=== PATIENT | male | born 1945 | race Caucasian/White ===

== ENCOUNTER 2018-11-11 11:26 | Inpatient (IN) | payer OTHER ==
--- NOTE | 2018-11-11 12:13 | PDOC ---
History of Present Illness - General Chief Complaint: Revisit, Lab Variance Stated Complaint: ABNORMAL BLOOD Time Seen by Provider: 11/11/18 11:53 - History of Present Illness Initial Comments: 11/11/18 13:01 HPI: 73 y/o M hx of gout and prostate cancer (dxd 09/2017 s/p treatment with Lupron shots last taken in 05/2018) presenting from home for having Hb 6.2 from recent office visit blood work. Patient reports 6 months of lethargy and inability to be active since his last Lupron shot in May. He attributed his symptoms to his cancer, however, was convinced by his to see his PCP 2 days ago for blood work; he was called yesterday with results and told to present to the ED. Patient is normally very active and spends time walking however the lethargy has prevented that. He also reports increased SOB when walking up the stairs at home as well as LH when getting up from bed. Patient denies fever, night sweats, ARCHER, vision change, chest pain, palpitations , abdominal pain, nausea, vomiting, diarrhea, constipation, dysuria, hematuria, BPR, lightheadedness, weakness, sensory changes. Of note, patient reports a single episode of large bloody bowel movement 1.5 years ago where the toilet bowl filled with blood after starting ASA meds. He stopped taking ASA and never had an additional episode. He reports having a hemoccult with his PCP that was negative. Denies ever having colonoscopy. Denies FH of colorectal cancer. He also does note that his pants no longer fit comfortably and he has had to cut the elastic bands of his underwear due to increased pressure on his abdomen; denies any abdominal pain when not wearing clothes PMHx: as noted above ROS: as noted SHx: Denies tobacco use since 40 years ago; no alcohol use since 11 years ago; no rec drugs Allergies: NKDA PCP: Dr Laz Michel Oncologist: Dr Nicolle Ho : Angela Contreras [phone] ROS: GENERAL/CONSTITUTIONAL: +lethargy HEAD, EYES, EARS, NOSE AND THROAT: No change in vision. No ear pain or discharge. No sore throat. CARDIOVASCULAR: No chest pain or shortness of breath RESPIRATORY: No cough, wheezing, or hemoptysis. GASTROINTESTINAL: No nausea, vomiting, diarrhea or constipation. GENITOURINARY: No dysuria, frequency, or change in urination. MUSCULOSKELETAL: No joint or muscle swelling or pain. No neck or back pain. SKIN: No rash NEUROLOGIC: No headache, vertigo, loss of consciousness, or change in strength/ sensation. ENDOCRINE: No increased thirst. No abnormal weight change HEMATOLOGIC/LYMPHATIC: No anemia, easy bleeding, or history of blood clots. ALLERGIC/IMMUNOLOGIC: No hives or skin allergy. PE: GENERAL: Awake, alert, and fully oriented, no acute distress, appears pale HEAD: No signs of trauma, normocephalic, atraumatic EYES: EOMI, sclera anicteric, conjunctival pallor ENT: Auricles normal inspection, hearing grossly normal, nares patent, oropharynx clear without exudates. Moist mucosa NECK: Normal ROM, no lymphadenopathy LUNGS: No increased work of breathing, symmetrical chest rise, clear to auscultation bilaterally, no wheezes, crackles or rhonchi HEART: Regular rate and rhythm, normal S1 and S2, no murmurs, peripheral pulses 2+ and equal bilaterally. ABDOMEN: Soft, nontender, nondistended, normoactive bowel sounds. No guarding, no rebound. No masses EXTREMITIES: Normal inspection, Normal range of motion, no edema. No clubbing or cyanosis. NEUROLOGICAL: Cranial nerves II through XII grossly intact. Normal speech, normal gait, no focal sensorimotor deficits SKIN: Warm, Dry, pale 11/11/18 15:27 Past History - Past Medical History Allergies/Adverse Reactions: Allergies Allergy/AdvReac Type Severity Reaction Status Date / Time No Known Allergies Allergy Verified 11/11/18 11:37 Home Medications: Ambulatory Orders NK [No Known Home Medication] 11/11/18 Cancer: Yes (prostate) COPD: No - Suicide/Smoking/Psychosocial Hx Smoking History: Never smoked *Physical Exam - Vital Signs Last Vital Signs Temp Pulse Resp BP Pulse Ox 98.1 F 79 18 157/61 100 11/11/18 11:35 11/11/18 11:35 11/11/18 11:35 11/11/18 11:35 11/11/18 11:57 ED Treatment Course - LABORATORY CBC & Chemistry Diagram: 11/11/18 13:00 11/11/18 13:00 Medical Decision Making - Medical Decision Making 11/11/18 13:08 73 y/o M hx of gout and prostate cancer (dxd 09/2017 s/p treatment with Lupron shots last taken in 05/2018) presenting from home for having Hb 6.2 from recent office visit blood work associated with lethargy and dyspnea on exertion over the past 6 months. Vitals wnl. PE remarkable for conjunctival pallor -cbc, cmp, Fe studies, T&S, hemoccult 11/11/18 15:23 Hb 6.5 Fe studies likely consistent with Fe deficiency anemia: Fe 9; TIBC 490; Fe 1%; Un IBC 481 hemoccult negative MBMD to [facility] 11/11/18 17:14 1unit prbc Will admit to [facility] *DC/Admit/Observation/Transfer Diagnosis at time of Disposition: Lethargy, Dyspnea on exertion Anemia Qualifiers: Anemia type: unspecified type Qualified Code(s): D64.9 - Anemia, unspecified - Discharge Dispostion Condition at time of disposition: Stable Decision to Admit order: Yes - Referrals Referrals: Laz Michel [Primary Care Provider] - - Patient Instructions - Post Discharge Activity
--- NOTE | 2018-11-11 12:26 | PDOC ---
Attending Attestation - Resident Resident Name: Soco Marques - ED Attending Attestation I have performed the following: I have examined & evaluated the patient, The case was reviewed & discussed with the resident, I agree w/resident's findings & plan, Exceptions are as noted - HPI HPI: 11/11/18 12:15 73y F hx of prostate ca formerly on lupron presents fro anemia - pt had outpatient lab work at dr Price office and was noted to have hbg of 6.2 and was told to come to the ED for a transfusion. pt notes he has had palpitations, and lightheadedness when he exerts hmself. denies any cp, sob, abd pain, rectal bleeding, melena, bpr, fever/chills. pt with hx of GIB in the past, but never followed up. GENERAL: The patient is awake, alert, and fully oriented, Nontoxic - in no acute distress. HEAD: Normocephalic, atraumatic. EYES: extraocular movements intact, sclera anicteric, pale conjunctiva ENT: Normal voice, Moist mucous membranes. NECK: Normal range of motion, supple LUNGS: Breath sounds equal, clear to auscultation bilaterally. No wheezes, no rhonchi, no rales. HEART: Regular rate and rhythm, normal S1 and S2 without murmur, rub or gallop. ABDOMEN: Soft, nontender, No guarding, no rebound. No CVA tenderness EXTREMITIES: Normal range of motion, trace edema. NEUROLOGICAL: No facial assymetry, Normal speech, PSYCH: Normal mood, normal affect. SKIN: Warm, Dry, normal turgor, - Physicial Exam PE: 11/11/18 16:21 see above - Medical Decision Making 11/11/18 16:21 pts albs reviewed noted anemic stool guaaic negative, but mimial stool in rectal vault will transuse 1u prbc and admit for further evaluation of anemia
[2018-11-11 13:31] LABS: MCH 15.5 pg (25.7-33.7); MCHC 28.1 g/dl (32.0-35.9); MEAN CELL VOLUME 55.1 fl (80-96); MEAN PLT VOLUME 8.8 fl (7.5-11.1); RBC 4.18 M/mm3 (4.00-5.60); RDW 20.7 % (11.9-15.9)
[2018-11-11 13:39] LABS: PLATELET COUNT 325 K/MM3 (134-434)
[2018-11-11 13:40] LABS: HEMOGLOBIN 6.5 GM/dL (11.7-16.9)
[2018-11-11 13:51] LABS: ALBUMIN 3.1 g/dl (3.4-5.0); BILIRUBIN,TOTAL 0.2 mg/dL (0.2-1); BLOOD UREA NITROGEN 7.1 mg/dL (7-18); CALCIUM 8.7 mg/dL (8.5-10.1); CREATININE 0.9 mg/dL (0.55-1.3); POTASSIUM 4.2 mmol/L (3.5-5.1); TOT PROT 6.7 g/dl (6.4-8.2)
[2018-11-11 13:57] LABS: IRON SERUM 9 ug/dL (50-175); TOTAL IRON BINDING CAPACITY 490 ug/dL (250-450)
[2018-11-11 14:13] LABS: INR 1.04 (0.83-1.09); PROTHROMBIN TIME (PATIENT) 12.3 SEC (9.7-13.0)
[2018-11-11 14:27] LABS: ANISOCYTOSIS 2+; MACROCYTOSIS 0; OVALOCYTE 1+; PLATELET ESTIMATE NORMAL; TEAR DROP CELLS 1+
--- NOTE | 2018-11-11 17:45 | HP ---
CHIEF COMPLAINT: Dyspnea on exertion and lethargy PCP: Dr. Michel HISTORY OF PRESENT ILLNESS: Pt. is a 73 y.o. M w/ PMHx. of Gout and Prostate CA ( Ddx. in 09/21, last Lupron injection 01/22) presents with worsening lethargy and dyspnea since May. Pt. states that he was convinced by his to go to his PCP (3 days ago) about his worsening symptoms that he felt was because of the Lupron. Pt. states that after climbing one flight of stairs he is diaphoretic, dizzy and has palpitations. Pt.states that he had a big blood bowel movement 1.5 years ago but denies any other episodes of occult blood loss including hematemesis, hematuria, melena, bleeding through the gums or bruises. Pt states that he is unable to eat red meat (lack of molars) and has decreased appetite over the last few months. Pt. states that he has been having worsening deep back pain( R>L) that is exacerbated by lying on the left side and by movement. Pt. endorses weight loss (205 lbs. -->198 lbs., unclear over how long of a period) despite increasing abdominal size that has cause such discomfort that none of his clothes fit and that he has to cut the elastics on his underwear. Pt. endorses worsening polyuria. Pt. endorses dizziness upon sitting up but denies chest pain, dyspnea at rest, constipation, paresthesias, nausea or vomiting. Of note Pt. states that on initial workup for his Prostate CA, he was told that he had enlarged lymph nodes in his pelvis and his back and that he had likely had his prostate CA for a long time by his oncologist. Pt. states that ever since he stopped taking the Lupron shots his PSA levels have increased. Pt. is unclear when his last CBC was before the one 3 days ago. ER course was notable for: (1) CBC, CMP, Iron studies (2) 1 unit pRBCs (3) Recent Travel: No PAST MEDICAL HISTORY: Gout Prostate CA PAST SURGICAL HISTORY: B/L THR Social History: SmokinPPD (19-30 sporadically), Quit 40 years ago Alcohol: Heavy Drinker (5+ drinks per day of beer and liquor), Quit 11 years ago Drugs: Denies Family History: Denies Allergies No Known Allergies Allergy (Verified 11/11/18 11:37) HOME MEDICATIONS: Home Medications Medication Instructions Recorded NK [No Known Home Medication] 11/11/18 REVIEW OF SYSTEMS As per [facility] PHYSICAL EXAMINATION Vital Signs - 24 hr 11/11/18 11/11/18 11/11/18 11:35 11:57 16:00 Temperature 98.1 F 98.3 F Pulse Rate 79 Pulse Rate [ 79 Right Radial] Respiratory 18 18 Rate Blood Pressure 157/61 Blood Pressure 135/71 [Right Arm] O2 Sat by Pulse 100 100 100 Oximetry (%) GENERAL: Awake, alert, and fully oriented, in no acute distress. HEAD: Normal with no signs of trauma. EYES: Pupils equal, round and reactive to light, extraocular movements intact, sclera anicteric, conjunctiva clear. EARS, NOSE, THROAT: Ears normal, nares patent, oropharynx clear without exudates. Moist mucous membranes. NECK: Normal range of motion, supple without lymphadenopathy, JVD, or masses. LUNGS: Breath sounds equal, clear to auscultation bilaterally. No wheezes, and no crackles. HEART: Regular rate and rhythm, normal S1 and S2 without murmur ABDOMEN: Soft, nontender, not distended, normoactive bowel sounds, no guarding, no rebound, no masses. MUSCULOSKELETAL: Normal range of motion at all joints. No bony deformities or tenderness. No CVA tenderness. UPPER EXTREMITIES: 2+ pulses, warm, well-perfused. No cyanosis. No clubbing. No peripheral edema. LOWER EXTREMITIES: 2+ dorsal pedal pulses, warm, well-perfused. No calf tenderness. No peripheral edema. NEUROLOGICAL: Cranial nerves II-XII intact. Normal speech. Normal gait. PSYCHIATRIC: Cooperative. Good eye contact. Appropriate mood and affect. SKIN: Warm, dry, normal turgor, hemangiomas on abdomen, prolonged capillary refill. Laboratory Results - last 24 hr 11/11/18 11/11/18 11/11/18 13:00 13:00 13:00 WBC 6.0 RBC 4.18 Hgb 6.5 L* Hct 23.0 L MCV 55.1 L MCH 15.5 L MCHC 28.1 L RDW 20.7 H Plt Count 325 MPV 8.8 Neutrophils % No Result Required. Neutrophils % (Manual) 64.6 Band Neutrophils % 0.0 Lymphocytes % No Result Required. Lymphocytes % (Manual) 27.3 Monocytes % (Manual) 5 Eosinophils % (Manual) 2.0 Basophils % (Manual) 1.0 Myelocytes % (Man) 0 Promyelocytes % (Man) 0 Blast Cells % (Manual) 0 Nucleated RBC % 0 Metamyelocytes 0 Hypochromia 3+ Platelet Estimate Normal Polychromasia 1+ Poikilocytosis 1+ Anisocytosis 2+ Microcytosis 3+ Macrocytosis 0 Tear Drop Cells 1+ Ovalocytes 1+ PT with INR INR Sodium 139 Potassium 4.2 Chloride 107 Carbon Dioxide 25 Anion Gap 7 L BUN 7.1 Creatinine 0.9 Est GFR (CKD-EPI)AfAm 97.86 Est GFR (CKD-EPI)NonAf 84.43 Random Glucose 100 Calcium 8.7 Iron 9 L TIBC 490 H Iron Saturation 1 L Unsaturated IBC 481 H Total Bilirubin 0.2 AST 21 ALT 23 Alkaline Phosphatase 60 Total Protein 6.7 Albumin 3.1 L Vitamin B12 602 Serum Folate 24 H Stool Occult Blood Blood Type Antibody Screen Crossmatch 11/11/18 11/11/18 11/11/18 13:00 13:30 13:48 WBC RBC Hgb Hct MCV MCH MCHC RDW Plt Count MPV Neutrophils % Neutrophils % (Manual) Band Neutrophils % Lymphocytes % Lymphocytes % (Manual) Monocytes % (Manual) Eosinophils % (Manual) Basophils % (Manual) Myelocytes % (Man) Promyelocytes % (Man) Blast Cells % (Manual) Nucleated RBC % Metamyelocytes Hypochromia Platelet Estimate Polychromasia Poikilocytosis Anisocytosis Microcytosis Macrocytosis Tear Drop Cells Ovalocytes PT with INR 12.30 INR 1.04 Sodium Potassium Chloride Carbon Dioxide Anion Gap BUN Creatinine Est GFR (CKD-EPI)AfAm Est GFR (CKD-EPI)NonAf Random Glucose Calcium Iron TIBC Iron Saturation Unsaturated IBC Total Bilirubin AST ALT Alkaline Phosphatase Total Protein Albumin Vitamin B12 Serum Folate Stool Occult Blood Negative Blood Type O POSITIVE Antibody Screen Negative Crossmatch 11/11/18 13:48 WBC RBC Hgb Hct MCV MCH MCHC RDW Plt Count MPV Neutrophils % Neutrophils % (Manual) Band Neutrophils % Lymphocytes % Lymphocytes % (Manual) Monocytes % (Manual) Eosinophils % (Manual) Basophils % (Manual) Myelocytes % (Man) Promyelocytes % (Man) Blast Cells % (Manual) Nucleated RBC % Metamyelocytes Hypochromia Platelet Estimate Polychromasia Poikilocytosis Anisocytosis Microcytosis Macrocytosis Tear Drop Cells Ovalocytes PT with INR INR Sodium Potassium Chloride Carbon Dioxide Anion Gap BUN Creatinine Est GFR (CKD-EPI)AfAm Est GFR (CKD-EPI)NonAf Random Glucose Calcium Iron TIBC Iron Saturation Unsaturated IBC Total Bilirubin AST ALT Alkaline Phosphatase Total Protein Albumin Vitamin B12 Serum Folate Stool Occult Blood Blood Type O POSITIVE Antibody Screen Negative Crossmatch See Detail ASSESSMENT/PLAN: Pt. is a 73 y.o. M w/ PMHx. of Gout and Prostate CA( Ddx. in 09/21, last Lupron injection 01/22) presents with worsening lethargy and dyspnea since May. #Microcytic Iron Deficiency Anemia HgB: 6.5 RDW: 20.7 (High) MCV: 55 (Low) Iron: 9 (Low) TIBC: 490 (High) B12: 600 (Normal) Folate: 24 (High) f/u Ferritin and Reticulocyte count in AM 1 unit pRBCs currently transfusing will f/u CBC after transfusion would benefit from IV on treatment given low TIBC and Iron levels GI consult (Dr. Alvarado) appreiciated for colonoscopy FOBT Negative, f/u Rpt. in AM #FEN encourage PO intake, low threshold for gentle hydration monitor electrolytes and replete as needed Regular Diet #DVT Ppx. Hep SQ BID ATTENDING PHYSICIAN STATEMENT I saw and evaluated the patient. I reviewed the resident's note and discussed the case with the resident. I agree with the resident's findings and plan as documented. SUBJECTIVE: OBJECTIVE: ASSESSMENT AND PLAN:
--- NOTE | 2018-11-11 19:49 | PN ---
Teaching Attending Note Name of Resident: Carlos Domínguez ATTENDING PHYSICIAN STATEMENT I saw and evaluated the patient. I reviewed the resident's note and discussed the case with the resident. I agree with the resident's findings and plan as documented. SUBJECTIVE: CC: referred by [facility] for anemia HPI : 73 y/o man with h/o prostate cancer diagnosed in 2018, and gout who presented after referral by PCP for anemia. he was been feeling weak and tired for months and he attributed that to Lupron therapy. he took 2 doses and he skipped sixto last dose he was supposed to receive in May. he has not seen his oncologist jyoti while. he denies any hematochezia, melena, hematemesis, use of NSAIds or alcohol. he never had colonoscopy or EGD. no GI doctor. was never told he had anemia. does not remember when his blood work was. he was told his PSA is increasing. he reports havign saha CT scan and bone scan . he was told cancer had spread to his lymph nodes in abd reports chronic back pain in R flank. no fever or chills, no urinary incontinence. has frequency at night OBJECTIVE: VS reviewed. calm, NAD. no facial droop. MMM, pale declined exam ASSESSMENT AND PLAN: 73 y/o man with h/o prostate cancer diagnosed in 2018, and gout who presented after referral by PCP for anemia. 1- severe symptomatic microcytic anemia: although iron studies were done before transfusion, ferritin was not done.iron studies nmight indicate iron def. lupron might be contributing to the anemia as it is a side effect. - will add ferritin to the previous labs if possibe; - will check retic count - rectal by ER resident with neg OB - repeat OB in stool - GI eval - heme eval - blood ordered. will follow cbc - might need IV iron if ferritin is very low 2- h/o prostate cancer. need to f/u with his oncologist 3- BAck pain, MRI of the L spine to r/o mets dispo : HLOC. lovenox for DVT Px
[2018-11-12 00:28] LABS: HEMATOCRIT 24.6 % (35.4-49); HEMOGLOBIN 7.2 GM/dL (11.7-16.9); MCHC 29.3 g/dl (32.0-35.9); MEAN CELL VOLUME 58.5 fl (80-96); MEAN PLT VOLUME 8.9 fl (7.5-11.1); PLATELET COUNT 288 K/MM3 (134-434); RBC 4.22 M/mm3 (4.00-5.60); RDW 22.8 % (11.9-15.9)
[2018-11-12 00:45] LABS: MCH 17.1 pg (25.7-33.7)
[2018-11-12 05:15] VITALS: BMI 28.7
[2018-11-12 07:49] LABS: BASO % 0.9 % (0-2.0); EOS % 4.2 % (0-4.5); HEMATOCRIT 25.9 % (35.4-49); HEMOGLOBIN 7.7 GM/dL (11.7-16.9); MCHC 29.6 g/dl (32.0-35.9); MEAN CELL VOLUME 58.2 fl (80-96); MEAN PLT VOLUME 9.1 fl (7.5-11.1); MONO % 13.1 % (3.8-10.2); NEUT % 56.8 % (42.8-82.8); PLATELET COUNT 297 K/MM3 (134-434); RBC 4.45 M/mm3 (4.00-5.60); RDW 22.9 % (11.9-15.9); WHITE BLOOD COUNT 5.9 K/mm3 (4.0-10.0)
[2018-11-12 07:57] LABS: BLOOD UREA NITROGEN 6.3 mg/dL (7-18); CALCIUM 8.3 mg/dL (8.5-10.1); CREATININE 0.8 mg/dL (0.55-1.3); POTASSIUM 4.1 mmol/L (3.5-5.1)
[2018-11-12 08:00] LABS: MCH 17.2 pg (25.7-33.7)
[2018-11-12 08:41] LABS: INR 1.04 (0.83-1.09); PROTHROMBIN TIME (PATIENT) 12.3 SEC (9.7-13.0)
[2018-11-12] MEDS: ENOXAPARIN NA (PORCINE) 40 MG/0.4 ML DISP.SYRIN SQ SCH (10:21)
--- NOTE | 2018-11-12 12:33 | CON.GI ---
Consult Consult Specialty:: Gastroenterology ( covering the [facility] GI service) Referred by:: Dr. Chadwick Hamlin Reason for Consultation:: microcytic anemia - History of Present Illness Chief Complaint: progressive weakness History of Present Illness: 73M is admitted with a Hb 6.5 and MCV of 55. He denies any melena, rectal bleeding, early satiety, constipation, narrowed stools or FH of colon or other GI cancer. He was diagnosed with prostate cancer by Dr. Dumont at [facility] and declined surgery and RT and then stopped Lupron after 2 doses. He denies taking NSAIDs and aspirin. He stopped aspirin several years after after her developed brisk bleeding on it. He never had an EGD or a colonoscopy. For the past few months he has worsening exercise tolerance which prompted him to see his PMD Dr Michel who discovered his anemia and referred him to the ER. - History Source History Provided By: Patient Limitations to Obtaining History: No Limitations - Past Medical History Hepatobiliary: Yes: Other (alcoholic hepatitis 10 years ago at which point he stopped drinking it) Renal/: Yes: Cancer (prostate cancer) Rheumatology: Yes: Gout - Past Surgical History Past Surgical History: Yes: Joint Replacement (bilateral hip replacements) - Alcohol/Substance Use Hx Alcohol Use: Yes (quit 2008) History of Substance Use: reports: None - Smoking History Smoking history: Former smoker Have you smoked in the past 12 months: No If you are a former smoker, when did you quit?: quit 2004 - Social History Usual Living Arrangement: With Spouse ADL: Independent Occupation: retired hydraulic equip serviceman/sales Place of : [facility] Home Medications - Allergies Allergies/Adverse Reactions: Allergies Allergy/AdvReac Type Severity Reaction Status Date / Time No Known Allergies Allergy Verified 11/11/18 11:37 - Home Medications Home Medications: Ambulatory Orders Cranberry-Probiotic Tablet PO DAILY 11/12/18 Multivitamin/Iron/Folic Acid [Centrum Adults Tablet] DAILY 11/12/18 Family Disease History - Family Disease History Family Disease History: CA: Father ( 62 bone cancer ? prostate mets), Other : Mother ( 59 paranoid schizophrenia), Sister (CVA) Review of Systems - Review of Systems Constitutional: reports: Lethargy, Malaise, Weakness Eyes: reports: No Symptoms HENT: reports: No Symptoms Neck: reports: No Symptoms Cardiovascular: reports: No Symptoms Respiratory: reports: SOB on Exertion Gastrointestinal: reports: No Symptoms Genitourinary: reports: No Symptoms Musculoskeletal: reports: Joint Pain Physical Exam-GI Vital Signs: Vital Signs Temperature 98.1 F 11/12/18 08:42 Pulse Rate 84 11/12/18 08:42 Respiratory Rate 20 11/12/18 08:42 Blood Pressure 122/71 11/12/18 08:42 O2 Sat by Pulse Oximetry (%) 99 11/12/18 09:00 CBC,CMP WBC 5.9 K/mm3 (4.0-10.0) 11/12/18 06:00 RBC 4.45 M/mm3 (4.00-5.60) 11/12/18 06:00 Hgb 7.7 GM/dL (11.7-16.9) L 11/12/18 06:00 Hct 25.9 % (35.4-49) L 11/12/18 06:00 MCV 58.2 fl (80-96) L 11/12/18 06:00 MCH 17.2 pg (25.7-33.7) L 11/12/18 06:00 MCHC 29.6 g/dl (32.0-35.9) L 11/12/18 06:00 RDW 22.9 % (11.9-15.9) H 11/12/18 06:00 Plt Count 297 K/MM3 (134-434) 11/12/18 06:00 MPV 9.1 fl (7.5-11.1) 11/12/18 06:00 Absolute Neuts (auto) 3.4 K/mm3 (1.5-8.0) 11/12/18 06:00 Neutrophils % 56.8 % (42.8-82.8) 11/12/18 06:00 Neutrophils % (Manual) 64.6 % (42.8-82.8) 11/11/18 13:00 Band Neutrophils % 0.0 % 11/11/18 13:00 Lymphocytes % 25.0 % (8-40) 11/12/18 06:00 Lymphocytes % (Manual) 27.3 % (8-40) 11/11/18 13:00 Monocytes % 13.1 % (3.8-10.2) H 11/12/18 06:00 Monocytes % (Manual) 5 % (3.8-10.2) 11/11/18 13:00 Eosinophils % 4.2 % (0-4.5) 11/12/18 06:00 Eosinophils % (Manual) 2.0 % (0-4.5) 11/11/18 13:00 Basophils % 0.9 % (0-2.0) 11/12/18 06:00 Basophils % (Manual) 1.0 % (0-2.0) 11/11/18 13:00 Myelocytes % (Man) 0 % (0-2) 11/11/18 13:00 Promyelocytes % (Man) 0 % (0-2) 11/11/18 13:00 Blast Cells % (Manual) 0 % (0-0) 11/11/18 13:00 Nucleated RBC % 0 % (0-0) 11/12/18 06:00 Metamyelocytes 0 % (0-2) 11/11/18 13:00 Hypochromia 3+ 11/11/18 13:00 Platelet Estimate Normal 11/11/18 13:00 Polychromasia 1+ 11/11/18 13:00 Poikilocytosis 1+ 11/11/18 13:00 Anisocytosis 2+ 11/11/18 13:00 Microcytosis 3+ 11/11/18 13:00 Macrocytosis 0 11/11/18 13:00 Tear Drop Cells 1+ 11/11/18 13:00 Ovalocytes 1+ 11/11/18 13:00 Retic Count 1.40 % (0.5-1.5) 11/12/18 06:00 Sodium 141 mmol/L (136-145) 11/12/18 06:00 Potassium 4.1 mmol/L (3.5-5.1) 11/12/18 06:00 Chloride 110 mmol/L (98-107) H 11/12/18 06:00 Carbon Dioxide 26 mmol/L (21-32) 11/12/18 06:00 Anion Gap 5 MMOL/L (8-16) L 11/12/18 06:00 BUN 6.3 mg/dL (7-18) L 11/12/18 06:00 Creatinine 0.8 mg/dL (0.55-1.3) 11/12/18 06:00 Est GFR (CKD-EPI)AfAm 102.71 11/12/18 06:00 Est GFR (CKD-EPI)NonAf 88.62 11/12/18 06:00 Random Glucose 101 mg/dL (74-106) 11/12/18 06:00 Calcium 8.3 mg/dL (8.5-10.1) L 11/12/18 06:00 Iron 9 ug/dL (50-175) L 11/11/18 13:00 TIBC 490 ug/dL (250-450) H 11/11/18 13:00 Iron Saturation 1 % (17.5-39) L 11/11/18 13:00 Unsaturated IBC 481 ug/dL (200-275) H 11/11/18 13:00 Ferritin 3.9 ng/ml (8-388) L 11/11/18 13:00 Total Bilirubin 0.2 mg/dL (0.2-1) 11/11/18 13:00 AST 21 U/L (15-37) 11/11/18 13:00 ALT 23 U/L (13-61) 11/11/18 13:00 Alkaline Phosphatase 60 U/L (45-117) 11/11/18 13:00 Total Protein 6.7 g/dl (6.4-8.2) 11/11/18 13:00 Albumin 3.1 g/dl (3.4-5.0) L 11/11/18 13:00 Vitamin B12 602 pg/ml (193-986) 11/11/18 13:00 Serum Folate 24 ng/mL (3.1-17.5) H 11/11/18 13:00 Constitutional: Yes: Calm, Other (pale) Eyes: Yes: WNL HENT: Yes: Atraumatic Neck: Yes: Supple Cardiovascular: Yes: Regular Rate and Rhythm Respiratory: Yes: CTA Bilaterally Gastrointestinal Inspection: Yes: WNL ...Auscultate: Yes: Normoactive Bowel Sounds ...Palpate: Yes: Soft, Other (nontender) ...Percussion: Yes: Tympanitic ...Rectal Exam: Yes: Guaiac Negative (2+ prostate, g negative stool) Edema: No Neurological: Yes: Alert, Oriented Labs: CBC, BMP 11/12/18 06:00 11/12/18 06:00 INR, PTT INR 1.04 (0.83-1.09) 11/12/18 06:00 Laboratory Tests 11/11/18 11/11/18 11/12/18 13:00 13:00 06:00 Retic Count 1.40 Iron 9 L Iron Saturation 1 L Ferritin 3.9 L Vitamin B12 602 Serum Folate 24 H Problem List - Problems (1) Microcytic hypochromic anemia Assessment/Plan: Despite guaiac negative stool I have advised an EGD and a colonoscopy io exclude an intermittent indolently GI bleeding source such as a malignancy, vascular ectasias, silent ulcer/gastritis or GERD among other possibilities. I will also check for celiac disease. Code(s): D50.9 - IRON DEFICIENCY ANEMIA, UNSPECIFIED (2) Prostate cancer Code(s): C61 - MALIGNANT NEOPLASM OF PROSTATE (3) Gout Code(s): M10.9 - GOUT, UNSPECIFIED (4) History of acute alcoholic hepatitis Code(s): Z87.19 - PERSONAL HISTORY OF OTHER DISEASES OF THE DIGESTIVE SYSTEM (5) S/P bilateral hip replacements Code(s): Z96.643 - PRESENCE OF ARTIFICIAL HIP JOINT, BILATERAL (6) Dyspnea on exertion Code(s): R06.09 - OTHER FORMS OF DYSPNEA (7) Lethargy Code(s): R53.83 - OTHER FATIGUE Assessment/Plan Assessment: - Despite guaiac negative stool I have advised an EGD and a colonoscopy io exclude an intermittent indolently GI bleeding source such as a malignancy, vascular ectasias, silent ulcer/gastritis or GERD among other possibilities. I will also check for celiac disease. - The past h/o alcoholic liver disease predisposes the patient to portal gastropathy or varices as the cause of this anemia. I have discussed all of these possibilities with him and advisd him to continue to refrain from alcohol. Plan: -- I have advised Satya to prep for an EGD and a colonoscopy tomorrow with the GI group. I informed him of the potential risks associated with endoscopy including perforation and hemorrhage that could culminate in the need for transfusions and surgery and of the need for a bowel prep. He is declining both at this time. -- I will order a celiac panel -- I will order venofer The [facility] GI team will followup tomorrow
[2018-11-12] MEDS ORDERED: IRON SUCROSE INJECTION 300 MG in SODIUM CHLORIDE 235 ML IVPB ONE (12:52)
[2018-11-12 13:40] LABS: URINE APPEARANCE CLEAR; URINE BILIRUBIN NEGATIVE (NEGATIVE); URINE COLOR YELLOW; URINE GLUCOSE (UA) NEGATIVE (NEGATIVE); URINE KETONE NEGATIVE (NEGATIVE); URINE LEUK ESTERASE NEGATIVE (NEGATIVE); URINE NITRITE NEGATIVE (NEGATIVE); URINE PROTEIN NEGATIVE (NEGATIVE); URINE UROBILINOGEN 0.2 mg/dL (0.2-1.0)
--- NOTE | 2018-11-12 15:52 | PN ---
Progress Note (short form) - Note Progress Note: Subjective: no pain, feels fatigue. no CP or SOB . denies urinary or fecal incontinence Objective: Vital Signs: VS reviewed. calm, NAD. no facial droop. MMM, pale CV: RRr lungs: CTAB Ext : no edema or erythema on upper or lower extremities Abd: soft, NT, Nd , NL BS . MS: no TTP over the spine and no paraspinal tenderness Neuro of LE: strength 5/5 in proximal and distal LE b/l. knee jerk reflexes 1+ b/l. sensation to light touch nl ASSESSMENT AND PLAN: 73 y/o man with h/o prostate cancer diagnosed in 2018, and gout who presented after referral by PCP for anemia. 1- Severe symptomatic iron def anemia: although iron studies were done before transfusion, ferritin was not done.iron studies nmight indicate iron def. - declined EGD/Goessel . appreciate Dr. Alvarado's help - start iron supp at dc - getting IV iron , will refer to heme as out pt for iron infusion protocol 2- h/o prostate cancer. need to f/u with his oncologist 3- Back pain, declined MRI and he understands the possibility of mets 4- Fever : no clear source - check UA - send blood cx - declined MRI of L spine . dispo : HLOC. yvettenox for DVT Px Visit type - Emergency Visit Emergency Visit: Yes ED Registration Date: 11/11/18 Care time: The patient presented to the Emergency Department on the above date and was hospitalized for further evaluation of their emergent condition. - New Patient This patient is new to me today: No - Critical Care Critical Care patient: No - Discharge Referral Referred to [facility] No
--- NOTE | 2018-11-12 16:47 | EKG ---
Test Reason : Blood Pressure : / mmHG Vent. Rate : 072 BPM Atrial Rate : 072 BPM P-R Int : 154 ms QRS Dur : 088 ms QT Int : 420 ms P-R-T Axes : 009 -25 018 degrees QTc Int : 459 ms NORMAL SINUS RHYTHM SEPTAL INFARCT , AGE UNDETERMINED ABNORMAL ECG WHEN COMPARED WITH ECG OF 22-SEP-2003 08:53, SEPTAL INFARCT IS NOW PRESENT NONSPECIFIC T WAVE ABNORMALITY, IMPROVED IN INFERIOR LEADS NONSPECIFIC T WAVE ABNORMALITY NO LONGER EVIDENT IN LATERAL LEADS QT HAS LENGTHENED Confirmed by RICARDO CRANE MD ([id number]) on 11/12/2018 4:47:09 PM Referred By: Confirmed By:RICARDO CRANE MD
[2018-11-12] MEDS ORDERED: MELATONIN 5 MG TABLETS PO ONE (22:00)
[2018-11-13 08:05] LABS: BASO % 1.1 % (0-2.0); EOS % 4.6 % (0-4.5); HEMATOCRIT 24.8 % (35.4-49); HEMOGLOBIN 7.4 GM/dL (11.7-16.9); MCHC 29.7 g/dl (32.0-35.9); MEAN CELL VOLUME 58.3 fl (80-96); MEAN PLT VOLUME 8.9 fl (7.5-11.1); MONO % 12.6 % (3.8-10.2); NEUT % 48.7 % (42.8-82.8); PLATELET COUNT 309 K/MM3 (134-434); RBC 4.25 M/mm3 (4.00-5.60); RDW 22.3 % (11.9-15.9); WHITE BLOOD COUNT 5.6 K/mm3 (4.0-10.0)
[2018-11-13 08:06] LABS: BLOOD UREA NITROGEN 7.5 mg/dL (7-18); CALCIUM 8.2 mg/dL (8.5-10.1); CREATININE 0.8 mg/dL (0.55-1.3)
[2018-11-13 08:20] LABS: MCH 17.3 pg (25.7-33.7)
[2018-11-13 10:08] VITALS: BP 160/80; PULSE 101; TEMP 97.7
[2018-11-13] MEDS ORDERED: PT OWN MED DRAWER 7, Y5N ONE (10:29)
[2018-11-13] MEDS: ENOXAPARIN NA (PORCINE) 40 MG/0.4 ML DISP.SYRIN SQ SCH (10:56)
--- NOTE | 2018-11-13 17:27 | PN ---
Teaching Attending Note Name of Resident: Ivette Haider ATTENDING PHYSICIAN STATEMENT I saw and evaluated the patient. I reviewed the resident's note and discussed the case with the resident. I agree with the resident's findings and plan as documented. ASSESSMENT AND PLAN: 73 y/o man with h/o prostate cancer diagnosed in 2018, and gout who presented after referral by PCP for anemia. 1- Severe symptomatic iron def anemia 2- h/o prostate cancer. 3- Back pain, 4- Fever plan: patient refuses MRI, refuses cxray, refuses to stay in hospital to diagnose source of anemia, and to work up the source of fever. He also refuses MRI to look for Mets and or infection in spine. He understands the risks and decided to leave A
--- NOTE | 2018-11-13 19:55 | DS ---
Physical Exam: SUBJECTIVE: Patient seen and examined at the bedside, no acute events overnight. Patient states he's feeling better and would like to leave AMA since his just got out of the ED and he's worried about her. Patient states he only came to the hospital for his iron infusion and how that he's completed it he'd like to go home. OBJECTIVE: Vital Signs Period Temp Pulse Resp BP Sys/Domingo Pulse Ox Last 24 Hr 97.7 F-100.7 F 67-101 18-20 115-160/61-80 99-99 PHYSICAL EXAM GENERAL: The patient is awake, alert, and fully oriented, in no acute distress. HEAD: Normal with no signs of trauma. EYES: PERRL, extraocular movements intact, sclera anicteric, conjunctiva clear. ENT: Ears normal, nares patent, oropharynx clear without exudates, moist mucous membranes. NECK: Trachea midline, full range of motion, supple. LUNGS: Breath sounds equal, clear to auscultation bilaterally, no wheezes, no crackles, no accessory muscle use. HEART: Regular rate and rhythm, S1, S2 without murmur, rub or gallop. ABDOMEN: Soft, nontender, nondistended, normoactive bowel sounds, no guarding, no rebound, no hepatosplenomegaly, no masses. EXTREMITIES: 2+ pulses, warm, well-perfused, no edema. NEUROLOGICAL: Cranial nerves II through XII grossly intact. Normal speech, gait not observed. No facial droop PSYCH: Normal mood, normal affect. SKIN: Warm, dry, normal turgor, no rashes or lesions noted. LABS Laboratory Results - last 24 hr 11/13/18 11/13/18 07:00 07:00 WBC 5.6 RBC 4.25 Hgb 7.4 L Hct 24.8 L MCV 58.3 L MCH 17.3 L MCHC 29.7 L RDW 22.3 H Plt Count 309 MPV 8.9 Absolute Neuts (auto) 2.7 Neutrophils % 48.7 Lymphocytes % 33.0 D Monocytes % 12.6 H Eosinophils % 4.6 H Basophils % 1.1 Nucleated RBC % 0 Sodium 143 Potassium 4.0 Chloride 108 H Carbon Dioxide 26 Anion Gap 9 BUN 7.5 Creatinine 0.8 Est GFR (CKD-EPI)AfAm 102.71 Est GFR (CKD-EPI)NonAf 88.62 Random Glucose 108 H Calcium 8.2 L EKG (11/11/2018): NSR, new septal infarct when compared to prior ECG of 09/2003, nonspecific T wave abnormality improved in inferior leads, nonspecific T wave abnormality no longer evident in lateral leads, QT has lengthened HOSPITAL COURSE: Date of Admission:11/11/18 This is a 73yo M with a PMH of gout and prostate CA (diagnosed in October 2017, s/p two Lupron injections with last one in January 2018) who was sent by his PCP for anemia. Pt presented to [facility] on 11/11/2018 and was found to have Hb/Hct of 6.5/23.0 and MCV of 55.1. He was transfused with one pack RBCs and then given IV iron sucrose, after which his Hb/Hct improved to 7.4/24.8. Pt also presented with low-grade nighttime fevers around 100.8 without a clear source. He complained of lower back pain (R>L), but refused MRI due to an improvement of his pain while in the hospital. He was evaluated by GI for a possible bleed due to worsening anemia although stool guaiac test was negative. An EGD and colonoscopy was recommended, but pt refused because he stated hed like to discuss his care with family and outpatient physicians first. Tumor markers AFP, CEA, Celiac panel, and blood cultures are pending. Pt AMAed on 11/13/2018 before work-up could be completed. He stated he had an outpatient appointment with his urologist Dr. Carlo Jean (who he sees for his prostate CA) in one week. Date of Discharge: 11/13/18 Minutes to complete discharge: 40 Discharge Summary Reason For Visit: DYSPNEA ON EXERTION LETHARGY ANEMIA Condition: Stable - Instructions Disposition: AGAINST MEDICAL ADVICE - Home Medications Comprehensive Discharge Medication List: Ambulatory Orders Cranberry-Probiotic Tablet 1 tab PO DAILY 11/12/18 Multivitamin/Iron/Folic Acid [Centrum Adults Tablet] 1 tab PO DAILY 11/12/18 This patient is new to me today: Yes Date on this admission: 11/13/18 Emergency Visit: Yes ED Registration Date: 11/11/18 Care time: The patient presented to the Emergency Department on the above date and was hospitalized for further evaluation of their emergent condition. Critical Care patient: No - Discharge Referral Referred to [facility] No ATTENDING PHYSICIAN STATEMENT I saw and evaluated the patient. I reviewed the resident's note and discussed the case with the resident. I agree with the resident's findings and plan as documented. SUBJECTIVE: OBJECTIVE: ASSESSMENT AND PLAN:
[2018-11-14 04:06] LABS: CARCINOEMBRYONIC ANTIGEN 9.3 ng/mL (0.0-4.7)
[2018-11-15 17:10] LABS: GLIADIN ANTIBODY IGA 5 units (0-19); GLIADIN ANTIBODY IGG 4 units (0-19); TRANSGLUTAMINASE IGG 2 U/mL (0-5)
== END 2018-11-13 11:42 | disposition left against medical advice (07) | DRG 812 ==
LOC: JER 11:26 → JERBED 15:27 → J5S 22:35
PROVIDERS: ADMIT Internal Medicine; ATTEND Internal Medicine
PROC: 30233N1 Transfusion of Nonautologous Red Blood Cells into Peripheral Vein, Percutaneous Approach (ICD-10-PCS; principal; 2018-11-11)
DX: D50.0 Iron deficiency anemia secondary to blood loss (chronic) (principal); C61 Malignant neoplasm of prostate; T45.1X5A Adverse effect of antineoplastic and immunosuppressive drugs, initial encounter; Z87.891 Personal history of nicotine dependence; R63.0 Anorexia; M10.9 Gout, unspecified; Z87.19 Personal history of other diseases of the digestive system; R06.09 Other forms of dyspnea; R53.83 Other fatigue; R50.9 Fever, unspecified
CPT/HCPCS: 36415; 36430; 36511; 80048; 80053; 81003; 82105; 82272; 82378; 82607; 82728; 82746; 82784; 83516; 83540; 83550; 85025; 85027; 85044; 85610; 86850; 86900; 86901; 86922; 87040; 93005; 93010; 99284-25; J1756; P9038; P9058